=== PATIENT | male | born 1970 | race Two or more races ===

== ENCOUNTER 2025-03-31 13:43 | Emergency (ER) | payer BC, SELFPAY ==
[2025-03-31 14:21] VITALS: BP 153/91; PULSE 74; RESP 20; TEMP 37; O2SAT 96
--- NOTE | 2025-03-31 14:55 | XR_ITS ---
Examination: CT abdomen and pelvis without contrast. Coronal 3-D reconstructions. Sagittal 2-D reconstructions. Date and time of exam:March 31, 2025 1701 hours Comparison November 29, 2023 INDICATIONS: Diagnosis renal colic right-sided flank pain onset today CTDI: vol (mGy): 8.82 DLP: (mGycm): 559 Technique: Axial images of the abdomen have been obtained, 3 mm slice thickness Intravenous contrast material has not been administered. Low dose protocols were performed. One or more of the following dose reduction techniques were used; automated exposure control, adjustment of the mA and/or KV according to patient size, use of iterative reconstruction technique. Findings: Fatty infiltration throughout the liver, liver are mildly irregular in contour 24 mm enhancing lesion medial right lobe of the liver Spleen is not enlarged No pancreatic or adrenal mass Minimal right hydronephrosis, 5 mm proximal right ureteral calculus Aorta normal size No bowel obstruction Normal appendix Urinary bladder intact IMPRESSION: Recommend pelvic sonography to assess the 24 mm enhancing lesion medial right lobe of the liver Minimal right hydronephrosis, 5 mm proximal right ureteral calculus
[2025-03-31] MEDS: oxyCODONE/APAP 5/325 TABLET 1 TAB PO (15:10)
[2025-03-31] MEDS: ONDANSETRON ODT 4 MG TABRAP PO (15:10)
[2025-03-31] MEDS: KETOROLAC INJ 60 MG/2 ML VIAL 30 MG IM (15:11)
[2025-03-31 15:37] LABS: Basophils % (Auto) 0 % (0-2.5); Eosinophils # (Auto) 0.1 Thou/mm3 (0.0-0.5); Eosinophils % (Auto) 1 % (0-10); Hematocrit 43.2 % (41.0-53.0); Hemoglobin 15.1 g/dL (13.5-16.0); Immature Granulocytes % (Auto) 0 % (0-0); Immature Granulocytes Auto 0.02 Thou/mm3 (0.00-0.00); Lymphocytes % (Auto) 31 % (10-50); Mean Corpuscular Hemoglobin 31.7 pg (25.0-35.0); Mean Corpuscular Volume 91 fL (80-100); Monocytes # (Auto) 0.8 Thou/mm3 (0.0-0.8); Monocytes % (Auto) 8 % (0-12); Neutrophils % (Auto) 60 % (37-80); Nucleated Red Blood Cell % 0 /100 WBC (0); Platelet Count 237 Thou/mm3 (140-440); RDW Standard Deviation 39.6 fL (35.1-43.9); Red Blood Count 4.76 Miln/mm3 (4.50-5.90); White Blood Count 9.9 Thou/mm3 (3.8-10.6)
[2025-03-31 15:51] LABS: Alanine Aminotransferase 79 U/L (10-49); Albumin, Serum 4.8 gm/dL (3.5-5.0); Albumin/Globulin Ratio 1.7 (1.2-2.2); Alkaline Phosphatase 84 U/L (46-116); Anion Gap 8 (7-16); Aspartate Amino Transferase 51 U/L (0-34); BUN/Creatinine Ratio 10 Ratio (12-20); Bilirubin,Total 0.6 mg/dL (0.3-1.2); Blood Urea Nitrogen 13 mg/dL (9-23); Calcium 9.6 mg/dL (8.3-10.6); Calcium (Corrected) 9.6 mg/dL (8.5-10.1); Carbon Dioxide 25.9 mMol/L (20.0-31.0); Chloride 107 mMol/L (98-107); Creatinine (Component) 1.3 mg/dL (0.6-1.3); Globulin 2.9 gm/dL (2.3-3.5); Glucose 162 mg/dL (74-106); Lipase 43 U/L (12-53); Osmolality,Calculated 285 (275-295); Potassium 4.3 mMol/L (3.4-5.1); Sodium 141 mMol/L (136-145); Total Protein 7.7 gm/dL (5.7-8.2); eGFR > 60 See Note
[2025-03-31 16:03] LABS: Collection Type, Urine Voided; Squamous Epithelial Cell,Urine 0 /hpf (0-5)
[2025-03-31 16:18] LABS: Bilirubin,Urine Negative (Negative); Blood,Urine 3+ (Negative); Clarity,Urine Turbid (Clear/Hazy); Color,Urine Lt-Yellow (Lt Yel-Yel); Culture Indicated,Urine Not Indicated; Glucose, Urine Negative (Negative); Ketones,Urine Negative (Negative); Leukocyte Esterase,Urine Negative (Negative); Nitrite,Urine Negative (Negative); Protein,Urine Trace (Neg - Trace); RBC,Urine 818 /hpf (0-3); Specific Gravity,Urine 1.018 (1.001-1.035); Urobilinogen,Urine Negative mg/dL (0.0-1.0); WBC,Urine 3 /hpf (0-5)
--- NOTE | 2025-03-31 17:56 | PD.EDMALE ---
ED Male Genitalurinary RME/HPI General Chief complaint: Urogenital-Male Stated complaint: Blood in urine, flank pain today Time Seen by Provider: 03/31/25 14:28 Arrival date/time: 03/31/25 13:43 RME / HPI RME / HPI Narrative: [id number]-year-old patient presents emergency department with complaint of blood in urine and flank pain that began earlier today patient denies nausea vomiting. Patient rates his pain as a 10 out of 10. He denies any aggravating or elevating factors. Related Data Home Medications ?Medication ?Instructions ?Recorded ?Confirmed amlodipine 5 mg tablet 5 mg PO QDAY 08/23/19 09/21/19 losartan 50 mg tablet 50 mg PO QDAY 08/23/19 09/21/19 metformin 500 mg tablet 500 mg PO BID 08/23/19 09/21/19 bupropion HCl 100 mg tablet 100 mg PO TID 05/13/20 05/13/20 metoclopramide HCl 10 mg tablet 10 mg PO TID 05/13/20 05/13/20 (Reglan) omeprazole magnesium 20 mg 40 mg PO QDAY 05/13/20 05/13/20 tablet,delayed release (Prilosec OTC) Previous Rx's ?Medication ?Instructions ?Recorded ibuprofen 800 mg tablet 800 mg PO Q8H PRN pain #60 tabs 03/12/22 ketorolac 10 mg tablet 10 mg PO Q8H 5 days #15 tabs 03/31/25 oxycodone-acetaminophen 5 mg-325 1 tab PO Q8H PRN pain #15 tabs 03/31/25 mg tablet (Percocet) Allergies Allergy/AdvReac Type Severity Reaction Status Date / Time hydromorphone AdvReac Severe CHEST AND Verified 03/31/25 13:46 NECK PAIN, DIZZINESS morphine AdvReac Intermediate Palpitation Verified 03/31/25 13:46 s Review of Systems Review of Systems Systems Reviewed: All systems reviewed, normal except as documented Constitutional Constitutional: Reports system reviewed and no additional complaints, except as documented Cardiovascular Cardiovascular: Reports system reviewed and no additional complaints, except as documented and Reports as per HPI Respiratory Respiratory: Reports system reviewed and no additional complaints, except as documented Genitourinary Genitourinary: Reports dysuria, Denies genital lesions, Denies genital pain, Denies hematospermia, Reports hematuria, Denies nocturia, Denies oliguria, Denies scrotal swelling, Denies testicular mass and Denies testicular pain Musculoskeletal Musculoskeletal: Reports system reviewed and no additional complaints, except as documented ED Exam General General appearance: Present alert; Absent lethargic, obtunded or in distress ENT ENT exam: Present normal exam, normal oropharynx and mucous membranes moist Neck Neck exam: Present normal inspection and full ROM Chest Chest inspection: Present normal inspection and symmetric chest wall rise Respiratory Respiratory exam: Present normal lung sounds bilaterally Cardiovascular Cardiovascular exam: Present regular rate and normal rhythm Abdominal Exam Abdominal exam: Present soft; Absent distention or tenderness exam: Present normal inspection; Absent testicular tenderness, urethral discharge or scrotal swelling Course Quality Measures none Orders Category Date Time Status CT abdomen pelvis wo con Stat Exams 03/31/25 14:55 Completed CBC [CBC] Stat Lab 03/31/25 15:21 Completed CMP [Comprehensive Metabolic Panel] Stat Lab 03/31/25 15:21 Completed Lipase Stat Lab 03/31/25 15:21 Completed Urinalysis, C/S if Indicated Stat Lab 03/31/25 15:49 Completed Ketorolac Inj [Toradol Inj] Med 03/31/25 14:55 Discontinued 30 mg IM X1 ONE Ondansetron Odt [Zofran Odt] Med 03/31/25 14:55 Discontinued 4 mg PO X1 ONE oxyCODONE/APAP 5/325 [Percocet 5/325] Med 03/31/25 14:59 Discontinued 1 tab PO X1 ONE Vital Signs Vital signs: Vital Signs Temperature 98.6 F 03/31/25 14:21 Pulse Rate 74 03/31/25 14:21 Respiratory Rate 20 03/31/25 14:21 Blood Pressure 153/91 H 03/31/25 14:21 Pulse Oximetry (%) 96 03/31/25 14:21 Oxygen Delivery Method Room Air 03/31/25 14:21 Urogenital - Male MDM Narrative MDM Narrative:: 54 patient presents to ED with complaint of flank pain radiating to back, blood work unremarkable, CT indicates renal stone, patient is stable to d/c home with strict return to ED if symptoms don't improve. Patient data External records reviewed:: None Clinical information provided by:: patient Social determinants that could affect healthcare access:: none Patient has the following chronic illnesses:: na How is presenting disease/condition affected by chronic disease/condition?: no chronic disease Evaluation data The following diagnostics were reviewed and interpreted by me:: lab results and radiology exam(s) Lab and/or radiology exams considered but not ordered:: considered and performed Interpretation Summary: + renal calculus Medications / Prescriptions Medications or Prescriptions considered but not ordered:: na Medication administrations:: Medication Administration History Discontinued Medications Ketorolac Tromethamine (Ketorolac Inj 60 Mg/2 Ml Vial) 30 mg IM X1 ONE Stop: 03/31/25 14:56 Last Admin: 03/31/25 15:11 Dose: 30 mg Documented By: WINIFRED Ondansetron HCl (Ondansetron Odt 4 Mg Tabrap) 4 mg PO X1 ONE; Protocol Stop: 03/31/25 14:56 Last Admin: 03/31/25 15:10 Dose: 4 mg Documented By: WINIFRED Oxycodone/Acetaminophen (Oxycodone/Apap 5/325 Tablet) 1 tab PO X1 ONE Stop: 03/31/25 15:00 Last Admin: 03/31/25 15:10 Dose: 1 tab Documented By: WINIFRED per above Consultations Consultation(s) initiated? (list below): No Diagnosis Urogenital Male Differential Diagnosis: urinary tract infection, priapism, urethritis, epididymitis and acute retention of urine Most likely diagnosis given after review of the tests above:: renal stone Admission Indicated Admission indicated?: not indicated Explain why admission is indicated or not indicated:: na Admission Request Was there a request for admission?: No Disposition Plan Disposition Plan: Discharge Discharge Attestation Discharge Attestation: The patient and all family members were given an opportunity to ask questions and understood the discharge instructions. Discharge instructions specifically effects, indications for sooner follow up or return to the emergency department, and the expected course of current diagnosis. Patient condition: Stable Discharge Plan Plan Patient Disposition: HOME (Self Care) Patient condition on transfer: Stable Prescriptions/Referrals Prescriptions/Med Rec: New oxycodone-acetaminophen [Percocet] 5-325 mg tablet 1 tab PO Q8H MDD 3 PRN (Reason: pain) Qty: 15 0RF ketorolac 10 mg tablet 10 mg PO Q8H 5 Days Qty: 15 0RF Rx Instructions: maximum total duration of 5 days from all oral, intranasal, or parenteral formulations No Action losartan 50 mg Tablet 50 mg PO QDAY metformin 500 mg Tablet 500 mg PO BID amlodipine 5 mg Tablet 5 mg PO QDAY bupropion HCl 100 mg Tablet 100 mg PO TID metoclopramide HCl [Reglan] 10 mg Tablet 10 mg PO TID omeprazole magnesium [Prilosec OTC] 20 mg Tablet,Delayed Release (Dr/Ec) 40 mg PO QDAY ibuprofen 800 mg tablet 800 mg PO Q8H PRN (Reason: pain) Qty: 60 0RF Referrals: Jeffery Gutierrez MD [Primary Care Provider] - In 1 week Problem List Clinical Impression: Renal calculus, Hematuria Patient/Caregiver Discharge Instructions Education Materials: ED Hematuria, ED Kidney Stone w/ Colic Print Language: Sinhala Stand Alone Forms: [place] Award Info., Patient Portal Info Letter
[2025-03-31 18:30] VITALS: BP 138/94; PULSE 65; RESP 17; TEMP 36.7; O2SAT 96
== END 2025-03-31 18:30 | disposition home or self-care (01) ==
PROVIDERS: Physician Assistant; Emergency Provider Emergency Medicine; PCP Internal Medicine
DX: N20.0 Calculus of kidney (principal)
CPT/HCPCS: 36415; 74176; 80053; 81001; 83690; 85025; 96372; 99284; J1885; Q0162; A9270

== ENCOUNTER 2025-04-22 09:41 | Emergency (ER) | payer BC, SELFPAY ==
[2025-04-22 09:49] VITALS: BP 128/86; PULSE 87; RESP 18; TEMP 36.8; O2SAT 95; BMI 31.3
--- NOTE | 2025-04-22 09:53 | XR_ITS ---
Examination: Right knee 4 views TECHNIQUE: AP oblique lateral axial right knee 4 views Date and time: April 22, 2025 1034 hours INDICATIONS: Injury to the knee today with foreign body. FINDINGS: Positive for 6 mm foreign body projecting in the soft tissue above and anterior to the patella No fracture or dislocation IMPRESSION: Positive for opaque foreign body in the soft tissue
--- NOTE | 2025-04-22 10:48 | PD.EDRME ---
Rapid Medical Screening Exam RME Arrival date/time: 04/22/25 09:41 54-year-old male presents to the emergenct department today stating that he shot himself in the right knee with a nail gun patient concerned about foreign body Chief Complaint: Wound/Laceration Time Seen by Provider: 04/22/25 10:45 Vital signs: Vital Signs Temperature 98.3 F 04/22/25 09:49 Pulse Rate 87 04/22/25 09:49 Respiratory Rate 18 04/22/25 09:49 Blood Pressure 128/86 H 04/22/25 09:49 Pulse Oximetry (%) 95 04/22/25 09:49 Oxygen Delivery Method Room Air 04/22/25 09:49
--- NOTE | 2025-04-22 11:04 | PC.NURSE ---
Called [facility] spoke with Davi regarding all xray results, per Davi he will contact Dr. Tony varma reading images.
[2025-04-22 11:37] VITALS: BP 124/79; PULSE 68; RESP 18; TEMP 36.6; O2SAT 95
--- NOTE | 2025-04-22 11:48 | PD.EDWOUND ---
ED Wound/Laceration-RME/HPI General Chief Complaint: Skin/Abscess/Foreign Body Stated Complaint: Bullet right knee, laceration Time Seen by Provider: 04/22/25 10:45 Source: patient Arrival date/time: 04/22/25 09:41 Mode of arrival: ambulatory Limitations: no limitations RME / HPI RME / HPI narrative: 54-year-old male with a history of type 2 diabetes and hypertension. Is here today with a right leg wound just above the kneecap. He states he was injured at work while using a projectile powered nail gun. He states he has a foreign body embedded just underneath the skin surface above the kneecap. He has full range of motion with discomfort. He states his last tetanus shot was last year. He has no other complaints or concerns Related Data Home Medications ?Medication ?Instructions ?Recorded ?Confirmed amlodipine 5 mg tablet 5 mg PO QDAY 08/23/19 09/21/19 losartan 50 mg tablet 50 mg PO QDAY 08/23/19 09/21/19 metformin 500 mg tablet 500 mg PO BID 08/23/19 09/21/19 bupropion HCl 100 mg tablet 100 mg PO TID 05/13/20 05/13/20 metoclopramide HCl 10 mg tablet 10 mg PO TID 05/13/20 05/13/20 (Reglan) omeprazole magnesium 20 mg 40 mg PO QDAY 05/13/20 05/13/20 tablet,delayed release (Prilosec OTC) Previous Rx's ?Medication ?Instructions ?Recorded ibuprofen 800 mg tablet 800 mg PO Q8H PRN pain #60 tabs 03/12/22 oxycodone-acetaminophen 5 mg-325 1 tab PO Q8H PRN pain #15 tabs 03/31/25 mg tablet (Percocet) amoxicillin 875 mg-potassium 1 tab PO Q12H #14 tabs 04/22/25 clavulanate 125 mg tablet doxycycline hyclate 100 mg capsule 100 mg PO BID 14 days #28 caps 04/22/25 Allergies Allergy/AdvReac Type Severity Reaction Status Date / Time hydromorphone AdvReac Severe CHEST AND Verified 04/22/25 09:45 NECK PAIN, DIZZINESS morphine AdvReac Intermediate Palpitation Verified 04/22/25 09:45 s Review of Systems Review of Systems Systems Reviewed: All systems reviewed, normal except as documented ED Exam General Limitations: Present no limitations General appearance: Present alert and in no apparent distress Head Head exam: Present atraumatic Eye Eye exam: Present normal appearance, PERRL and EOMI ENT ENT exam: Present normal exam, normal oropharynx and mucous membranes moist Neck Neck exam: Present normal inspection, full ROM and trachea midline Chest Chest inspection: Present normal inspection and symmetric chest wall rise Respiratory Respiratory exam: Present normal lung sounds bilaterally Cardiovascular Cardiovascular exam: Present regular rate, normal rhythm and normal heart sounds Abdominal Exam Abdominal exam: Present soft and normal bowel sounds Extremities Exam Extremities exam: Present normal inspection and full ROM Back Exam Back exam: Present normal inspection and full ROM Neurological Exam Neurological exam: Present alert and oriented X3 Psychiatric Psychiatric exam: Present normal affect and normal mood Skin Skin exam: Present warm, dry, normal color and other (There is a 2 m, open wound, or just superior to the patella along the midline of the right leg. No active bleeding. No erythema, fluctuance, or discharge is present.) Course Course Course Narrative: Verbal consent was obtained. There is a 1 cm, linear, open wound, just superior to the patella. This was infiltrated 1% lidocaine. This wound was enlarged to approximately 2.5 cm. Wound was dissected. There was difficulty in grasping the foreign body. Dr. Cat, the attending ER physician was contacted who assisted in the extraction of the foreign body. Foreign body was removed and plain films were then obtained to rule out any other foreign body. Repeat plain films verified foreign body removal. Wound was then irrigated with 2 L of normal saline by tech. Wound was then approximated via primary intention by me. See procedure note. A dressing was placed and the patient was placed in a knee immobilizer. Patient will follow-up with Dr. Melgoza with orthopedics in 2 days. He will continue antibiotics as prescribed. Return as needed for any worsening or emergent changes. Quality Measures none Orders Category Date Time Status Apply knee immobilizer NOW Care 04/22/25 15:37 Active Insert IV NOW Care 04/22/25 11:52 Active XR knee RT 3V Stat Exams 04/22/25 15:34 Taken XR knee comp RT 4V Stat Exams 04/22/25 09:53 Completed XR knee limited RT 2V Stat Exams 04/22/25 14:41 Taken Lidocaine 1% 20 ml [Xylocaine 1% 20 ML] Med 04/22/25 12:39 Discontinued 20 ml INFL X1 ONE ceFAZolin/D5W 2 GM IV [Ancef 2gm Ivpb] Med 04/22/25 11:44 Discontinued 2 gm in 100 ml IV X1 Vital Signs Vital signs: Vital Signs Temperature 98.3 F 04/22/25 09:49 Pulse Rate 87 04/22/25 09:49 Respiratory Rate 18 04/22/25 09:49 Blood Pressure 128/86 H 04/22/25 09:49 Pulse Oximetry (%) 95 04/22/25 09:49 Oxygen Delivery Method Room Air 04/22/25 09:49 PROCEDURES: Procedure Comment Verbal consent was obtained. Wound was infiltrated with 1% lidocaine. Wound was approximated with #2, 4?0, simple erupted nylon sutures. A dressing was placed. Procedure tolerated well without any immediate complication. Wound / Laceration MDM Narrative MDM Narrative:: 54-year-old male with a history of diabetes hypertension is here today with a right leg wound just above the kneecap. He states he was injured at work while using a projectile powered nail gun. He states he has a foreign body embedded just underneath the skin surface above the kneecap. He has full range of motion with discomfort. He states his last tetanus shot was last year. He has no other complaints or concerns On exam, patient is nontoxic-appearing. Vital signs are stable. He has full range of motion of his knee however his movements are slow secondary to pain and discomfort. There is a 2 m, open wound, or just superior to the patella along the midline of the right leg. No active bleeding. No erythema, fluctuance, or discharge is present. Dr Ambrose with orthopedics was paged at approximately 11:45 AM. Patient data External records reviewed:: None Clinical information provided by:: patient Social determinants that could affect healthcare access:: none Patient has the following chronic illnesses:: n/a How is presenting disease/condition affected by chronic disease/condition?: no chronic disease Evaluation data The following diagnostics were reviewed and interpreted by me:: radiology exam(s) (Foreign body superior to the right patella) Lab and/or radiology exams considered but not ordered:: n/a Interpretation Summary: Foreign body right knee Medications / Prescriptions Medications or Prescriptions considered but not ordered:: n/a Medication administrations:: Medication Administration History Discontinued Medications Cefazolin Sodium (Ancef 2gm Ivpb) 2 gm in 100 mls @ 200 mls/hr IV X1 ONE Stop: 04/22/25 12:13 Last Infusion: 04/22/25 12:30 Dose: Infused Documented By: Admin: 04/22/25 11:58 Dose: 200 mls/hr Documented By: JACOBO Lidocaine HCl (Lidocaine Hcl 1% 20 Ml Vial) 20 ml INFL X1 ONE Stop: 04/22/25 12:40 Last Admin: 04/22/25 13:22 Dose: 20 ml Documented By: JACOBO See above Consultations Consultation(s) initiated? (list below): Yes Diagnosis Wound Differential Diagnosis: laceration, abrasion and avulsion of skin Most likely diagnosis given after review of the tests above:: Soft tissue foreign body Admission Indicated Admission indicated?: not indicated Admission Request Was there a request for admission?: No Disposition Plan Disposition Plan: Discharge Discharge Attestation Discharge Attestation: The patient and all family members were given an opportunity to ask questions and understood the discharge instructions. Discharge instructions specifically effects, indications for sooner follow up or return to the emergency department, and the expected course of current diagnosis. Patient condition: Stable Discharge Plan Plan Patient Disposition: HOME (Self Care) Patient condition on transfer: Stable Prescriptions/Referrals Prescriptions/Med Rec: New doxycycline hyclate 100 mg capsule 100 mg PO BID 14 Days Qty: 28 0RF amoxicillin-pot clavulanate 875-125 mg tablet 1 tab PO Q12H Qty: 14 0RF No Action losartan 50 mg Tablet 50 mg PO QDAY metformin 500 mg Tablet 500 mg PO BID amlodipine 5 mg Tablet 5 mg PO QDAY bupropion HCl 100 mg Tablet 100 mg PO TID metoclopramide HCl [Reglan] 10 mg Tablet 10 mg PO TID omeprazole magnesium [Prilosec OTC] 20 mg Tablet,Delayed Release (Dr/Ec) 40 mg PO QDAY ibuprofen 800 mg tablet 800 mg PO Q8H PRN (Reason: pain) Qty: 60 0RF oxycodone-acetaminophen [Percocet] 5-325 mg tablet 1 tab PO Q8H MDD 3 PRN (Reason: pain) Qty: 15 0RF Referrals: Jeffery Gutierrez MD [Primary Care Provider] - In 1 week Zaid Ambrose MD [Physician] - In 1 week Problem List Clinical Impression: Acute foreign body of right knee Patient/Caregiver Discharge Instructions Education Materials: ED Foreign Body Soft Tissue Removed Additional Instructions: - Use the 2 antibiotics as prescribed. We are placing you on Augmentin and doxycycline. Take each tablet every 12 hours. - Keep your wound clean. Do not apply any alcohol, hydroperoxide, or Betadine. - Follow-up with orthopedics in 1 to 3 days. Contact their office to schedule an appointment time. - Please return here at anytime for any worsening changes. Print Language: Filipino Stand Alone Forms: [place] Award Info., Patient Portal Info Letter
[2025-04-22 11:56] VITALS: BP 124/79; PULSE 69; RESP 17; TEMP 37; O2SAT 94
[2025-04-22] MEDS: ceFAZolin/D5W 2 GM IV 2 GM/100 ML BAG IV (11:58)
[2025-04-22] MEDS: LIDOCAINE HCL 1% 20 ML VIAL INFL (13:22)
--- NOTE | 2025-04-22 14:41 | XR_ITS ---
Examination: Right knee 6 views AP lateral TECHNIQUE: AP lateral right knee 6 views Date and time: April 22, 2025 1452 hours INDICATIONS: Foreign body on films 1035 this morning projecting above and anterior to the patella, foreign body retrieval today FINDINGS: Images demonstrate persistent 6 mm foreign body in the soft tissue above and anterior to the patella IMPRESSION: Foreign body in the soft tissue above and anterior to the patella
[2025-04-22 15:08] VITALS: BP 132/80; PULSE 75; RESP 18; O2SAT 98
--- NOTE | 2025-04-22 15:34 | XR_ITS ---
Examination: Knee, right , 3 views Technique: Knee AP, lateral, oblique 3 views Date and time of exam: April 22, 2025 1333 hours INDICATIONS: Post removal foreign body FINDINGS: 1 mm fragment remains in the soft tissue above and anterior to the patella IMPRESSION: 1 mm fracture fragment remains in the soft tissue above and anterior to the patella
--- NOTE | 2025-04-22 15:42 | PD.EDADDENDU ---
Emergency Room Addendum Addendum Narrative: JENNIFER Vigil inform me of a gentleman who had a foreign body in his right knee superficially but he was unsuccessful in removing it and I went and reevaluated and did a review of x-rays realize he has a very superficial metal foreign body that was very difficult to localize or see. I explored the wound and was unable to find our seating initially or irrigated further and multiple times in with no visualization. We irrigated the wound and JENNIFER Farrell assisted me and still was unable to visualize the foreign body. We used a couple needles to localize with multiple serial x-ray approximately 5 or 6 and it was apparent that the foreign body is immediately below the center of this wound. Further exploration and little extension of the wound revealed a shiny object visualized just superficially but in the depths of the wound. Further lidocaine was applied with Mr. Vigil assisting and eventually the foreign body was visualized it was grabbed with alligator forceps removed. The wound was then further irrigated and the care went back to Mr. Vigil for final disposition. Estimated blood loss during my procedures probably 30 to 40 cc. She may note this was a very difficult foreign body to visualize and I spent 65 minutes total and the care was given back to Mr. Vigil foreign body was removed and follow-up x-ray reveals no foreign body visualized. He has a follow-up planned with Dr. 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
[2025-04-22 16:19] VITALS: BP 139/101; PULSE 71; RESP 18; TEMP 36.9; O2SAT 96
== END 2025-04-22 16:35 | disposition home or self-care (01) ==
PROVIDERS: Emergency Provider Emergency Medicine; PCP Internal Medicine
DX: S81.041A Puncture wound with foreign body, right knee, initial encounter (principal)
CPT/HCPCS: 10120; 73560; 73562; 73564; 96365; 99283; J0689; J3490

== ENCOUNTER → 2025-06-27 | Outpatient (CLI) | payer BC, SELFPAY ==
--- NOTE | 2025-06-27 12:34 | XR_ITS ---
Examination: Sinus series 3 views TECHNIQUE: Michelle Quispe lateral sinus series 3 views Date and time: June 27, 2025 1242 hours Indications: Nasal congestion 2 years. FINDINGS: Moderate hypertrophy inferior nasal turbinates Opacity in the frontal ethmoid air cells consistent with chronic sinusitis No fluid levels IMPRESSION: Chronic frontal ethmoid sinusitis
== END | disposition home or self-care (01) ==
LOC: CDIM 12:24
DX: J32.8 Other chronic sinusitis (principal)
CPT/HCPCS: 70220

== ENCOUNTER → 2025-07-10 | Outpatient (BNVA) | payer BC, SELFPAY | END | disposition home or self-care (01) | PROVIDERS: Visit Provider Urology | DX: N20.0 Calculus of kidney (principal); Z87.442 Personal history of urinary calculi; E11.9 Type 2 diabetes mellitus without complications; I10 Essential (primary) hypertension; Z71.3 Dietary counseling and surveillance; E66.9 Obesity, unspecified; Z68.31 Body mass index [BMI] 31.0-31.9, adult | CPT/HCPCS: 81003; 99212; G0463 ==

== ENCOUNTER → 2025-07-10 | Outpatient (CLI) | payer BC, SELFPAY ==
[2025-07-19 15:35] LABS: Stone Analysis Source STONE
[2025-07-21 06:37] LABS: Stone Analysis Weight 0.073 g
== END | disposition home or self-care (01) ==
LOC: SLDO 14:50
PROVIDERS: Referring Provider Urology; Visit Provider Urology
DX: N20.0 Calculus of kidney (principal)
CPT/HCPCS: 82365

== ENCOUNTER → 2025-09-23 | Outpatient (CLI) | payer BC, SELFPAY ==
--- NOTE | 2025-09-23 10:52 | XR_ITS ---
EXAMINATION: PA lateral chest 2 views TECHNIQUE: Upright PA lateral chest 2 views Date and time: September 23, 2025, 1107 hours INDICATIONS: Chest pain 3 months. FINDINGS: Normal heart size The lungs are clear. Moderate osteopenia IMPRESSION: No active disease
[2025-09-23 12:18] LABS: Alanine Aminotransferase 60 U/L (10-49); Albumin, Serum 4.7 gm/dL (3.5-5.0); Albumin/Globulin Ratio 1.3 (1.2-2.2); Alkaline Phosphatase 91 U/L (46-116); Anion Gap 11 (7-16); Aspartate Amino Transferase 36 U/L (0-34); BUN/Creatinine Ratio 12 Ratio (12-20); Bilirubin,Total 0.8 mg/dL (0.3-1.2); Blood Urea Nitrogen 13 mg/dL (9-23); Calcium 10.0 mg/dL (8.3-10.6); Calcium (Corrected) 10.0 mg/dL (8.5-10.1); Carbon Dioxide 26.8 mMol/L (20.0-31.0); Chloride 103 mMol/L (98-107); Creatinine (Component) 1.1 mg/dL (0.6-1.3); Globulin 3.5 gm/dL (2.3-3.5); Glucose 142 mg/dL (74-106); Lipase 41 U/L (12-53); Osmolality,Calculated 283 (275-295); Potassium 4.3 mMol/L (3.4-5.1); Sodium 141 mMol/L (136-145); Total Protein 8.2 gm/dL (5.7-8.2); eGFR > 60 See Note
== END | disposition home or self-care (01) ==
LOC: COPL 10:35
DX: R07.89 Other chest pain (principal); Z79.899 Other long term (current) drug therapy
CPT/HCPCS: 36415; 71046; 80053; 83690